=== PATIENT | male | born 1940 | race Caucasian/White ===

== ENCOUNTER → 2018-01-16 13:26 | Outpatient (CLI) | payer MEDICARE, SELFPAY ==
--- NOTE | 2018-01-16 | DI.MRI.S_ITS ---
PROCEDURE: MR KNEE RT WO CON INDICATIONS: ARTHRITIS OF RIGHT KNEE TECHNIQUE: Noncontrast sagittal PD fast spin echo and T2 fast spin echo with fat saturation, sagittal 3-D FLASH with fat saturation; coronal T1 spin echo and PD fast spin echo with fat saturation, and axial PD fast spin echo with fat saturation through the knee. COMPARISON: [facility], CR, KNEE SERIES RT, 04/26/2015, 16:02. FINDINGS: Image quality: Diagnostic. Bones and joint: There is no acute fracture or dislocation. No suspicious osseous lesions are evident. There is a trace knee joint effusion with an associated prominent Rodriguez cyst. Intra-articular joint bodies within the Rodriguez's cyst are present. Severe tricompartmental degenerative changes of the knee are most pronounced within the medial compartment with prominent joint space narrowing, extensive chondromalacia, bony remodeling, and developing marginal osteophytes. The cartilage within the patellofemoral compartment demonstrates extensive chondromalacia and reactive marrow changes. There is thinning and heterogeneity of the head articular cartilage within the lateral tibiofemoral compartment. Cruciate ligaments: The anterior and posterior cruciate ligaments are intact. Menisci: There is degenerative signal of the medial and lateral menisci. There is moderate grade partial-thickness tearing involving the posterior root of the medial meniscus. Moderate fraying along the free edge of the body and posterior horn of the medial meniscus is identified with a complex tear through the central margin of the body of the medial meniscus. Medial structures: The medial collateral ligament is intact. The semimembranosus tendon insertion is intact. The imaged portions of the pes anserinus tendons are unremarkable. No significant fluid is contained within the pes anserinus bursa. Lateral structures: The popliteal tendon is thickened and mildly edematous at its origin. The lateral collateral ligament proper (fibular collateral ligament) and the proximal tibiofibular ligaments are intact. The distal aspect of the biceps femoris tendon and the iliotibial band are intact. Anterior structures: The quadriceps and patellar tendons are intact. There is no significant edema in the infrapatellar fat pad. Moderate edema is identified within the prepatellar soft tissues IMPRESSION: 1. Severe degenerative changes of the right knee are most pronounced within the medial compartment. 2. Complex tearing of the meniscus is more pronounced through the body of the meniscus. 3. Mild patellar tendinopathy. 4. 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 5. Mild proximal popliteal tendinopathy. Dictated by: Parish Becker M.D. on 01/16/2018 at 14:15 Approved by: Parish Becker M.D. on 01/16/2018 at 14:18
== END ==
PROVIDERS: PCP Internal Medicine Geriatric Medicine; Visit Provider Orthopaedic Surgery
DX: M17.11 Unilateral primary osteoarthritis, right knee (principal)
CPT/HCPCS: 73721

== ENCOUNTER 2018-03-11 07:56 | Day surgery (SDC) | payer MEDICARE, SELFPAY ==
[2018-02-26 13:56] VITALS: BMI 34.1
[2018-03-11] VITALS (11 sets, daily range): BP systolic 118–160; BP diastolic 59–83; PULSE 65–92; RESP 12–20; TEMP 36.2–36.6; O2SAT 92–100; BMI 34.1
--- NOTE | 2018-03-11 06:00 | DI.RAD.S_ITS ---
PROCEDURE: XR KNEE RT 1TO2V INDICATIONS: total right knee TECHNIQUE: 2 view(s) of the knee acquired. COMPARISON: None. FINDINGS: Bones: Patient is status post knee joint arthroplasty. Hardware components are in expected positions. Visualized bony structures are intact. Soft tissues: Overlying postoperative changes are noted. IMPRESSION: Status post right total knee arthroplasty with anatomic right knee alignment. Dictated by: Martinez French M.D. on 03/11/2018 at 12:48 Approved by: Martinez French M.D. on 03/11/2018 at 12:48
[2018-03-11] MEDS: ACETAMINOPHEN 325 MG TABLET 975 MG PO ×3 (08:58→21:12)
[2018-03-11] MEDS: PREGABALIN 75 MG CAPSULE PO (08:58)
[2018-03-11] MEDS: CELECOXIB 200 MG CAPSULE PO (08:58)
--- NOTE | 2018-03-11 09:30 | PM.PREOP ---
Pre-operative Note Interval Note Pre-op Check: Yes History & Physical Reviewed by Physician and Yes Exam Performed Changes: Yes H&P completed within 30 days and has changed as indicated here:: The patient has a 1 cm diameter scabbed over area on the left waite where he fell. The wound is seal with no drainage. No signs of infection. I discussed with the patient there might be slight increased infection risk given his diabetes. I do think it is reasonable to proceed with surgery. The patient would like to proceed knowing the slightly increase risk.
--- NOTE | 2018-03-11 09:33 | PM.OP.1 ---
Operative Date/Time/Diagnoses Date of procedure: 03/11/18 Time of procedure: 11:27 Post-op diagnosis: same Procedure & Clinicians Procedure: Right knee osteoarthritis Same procedure as scheduled: Yes Indications: The patient presents today for total knee arthroplasty after failure of conservative treatment. The nature of the procedure including the risks and benefits, alternatives, postoperative course and expected outcome were discussed and all questions answered. Consent was obtained. Operative site confirmed and marked. Surgeon: Darinel Pereyra Equipment Service Engineer: Roc Walter Anesthesia Type: General, Spinal and Local Operative Notes Findings: Severe osteoarthritis. Closure Type: primary Specimen(s): none sent Implants & Drains: [employer] BCS: 7 femoral component, 6 tibial component, 10 mm BCS polyethylene tray and 35 x 9 mm round patella Applied: implant(s) Estimated Blood Loss (mL): 50 Blood products transfused: none Tourniquet time (min): 24 Procedure in detail: The patient was taken to the operative suite and placed under general and spinal anesthesia. The patient was given prophylactic antibiotics prior to surgery. The patient was also given tranexamic acid, 1 g, just prior to surgery for postoperative hemostasis. The lateral knee was prepped and the joint injected with 20 mL of 1% Lidocaine with epinephrine. The knee was then prepped and draped in usual sterile fashion. The leg was exsanguinated with an Esmarch dressing and the tourniquet raised to 300 torr. A 15 cm anterior incision was made. Next a medial trivector arthrotomy was made. The extensor mechanism was marked to ensure accurate repair. Initial exposing dissection was carried out medially and laterally. The knee was then extended and the patellar thickness was measured and a cut made removing approximately 9 mm of bone with a goal of restoring normal patellar thickness. The patella was then sized and drilled. Some excess lateral bone was excised and the patellofemoral ligament released. The tourniquet was then released. The knee was then flexed and the [employer] femoral guide was placed. The anterior pins were placed and the distal rotation holes drilled. The distal cutting guide was placed and the templated distal femoral cut was made. The templating cutting block was then placed and the anterior, posterior and chamfer cuts made. The [employer] tibial guide was placed and the alignment checked along the axis of the proximal tibial with a ezequiel. The proximal tibial cut was then made with an oscillating saw. All meniscus and bony debris was then removed. Flexion extension gaps were checked. No specific balancing was required other than routine exposure and removal of osteophytes. The soft tissues were then injected with a combination of 20 mL of half percent Marcaine with epinephrine and 20 mL of Exparel. The trial components were then placed. The knee went into full extension and flexion beyond 120?. There was excellent medial- lateral balance throughout motion. Patellar tracking was excellent. The trial components were removed and size is confirmed for the final implants. The knee was then exsanguinated with an Esmarch dressing and the tourniquet reapplied for cementing. The knee was cleansed with Pulsavac irrigation and dried. The final components were cemented in with high viscosity vacuum mixed bone cement with antibiotics. The knee was held in extension and the patellar clamp until the cement had adequately cured. The knee was then irrigated with dilute Betadine solution. The extensor mechanism was closed with 5 interrupted #1 Vicryl sutures in 90 degrees of flexion. The joint was then injected with a combination of 1 g of tranexamic acid and 20 mL of quarter percent Marcaine with epinephrine. The subcutaneous tissue was closed with 2-0 Vicryl. The skin was closed with kevon and surgical adhesive. An Aquacel dressing and Meet wrap were then applied. Complications: none Condition: stable Disposition: PACU [facility]
[2018-03-11] MEDS: LACTATED RINGERS 1,000 ML 42 ML IV (10:03)
[2018-03-11] MEDS: CEFAZOLIN 2 GM/100 ML FROZ.PIGGY IV ×2 (10:09→17:11)
[2018-03-11] MEDS: LIDOCAINE 1% W/EPI INJ 20 ML INJ (10:20)
[2018-03-11] MEDS: TRANEXAMIC ACID 1,000 MG VIAL 2000 MG INJ (10:25)
--- NOTE | 2018-03-11 10:36 | SUR.OPER ---
Supine on padded OR bed. Pillow under head, arms secured on padded armboards <90 degree abduction. Safety belt across torso. Non-operative leg secured with tape over blanket over lower leg. Operative leg secured in De[employer]o/Jasper positioner. Foam padded brace at thigh of operative leg.
[2018-03-11] MEDS: BUPIVACAINE 0.5% W/ EPI (PF) 20 ML, BUPIVACAINE LIPOSOME 266 MG, SODIUM CHLORIDE 0.9% 8... INJ (10:59)
[2018-03-11] MEDS: BUPIVACAINE 0.5% W/ EPI (PF) 10 ML, TRANEXAMIC ACID 1,000 MG, SODIUM CHLORIDE 0.9% 20 ML INJ (10:59)
[2018-03-11] MEDS: POVIDONE-IODINE 15 ML, SODIUM CHLORIDE 0.9% 250 ML TOP (11:10)
[2018-03-11] MEDS: fentaNYL 100 MCG/2 ML INJ 50 MCG IV ×2 (11:51→11:59)
[2018-03-11] MEDS: HYDROMORPHONE 0.5 MG INJ IV (12:43)
[2018-03-11] MEDS: LACTATED RINGERS 1,000 ML 125 ML IV ×2 (12:44→21:14)
[2018-03-11] MEDS: OXYCODONE IR 5 MG TABLET PO (13:59)
--- NOTE | 2018-03-11 15:33 | PT.IIE ---
Addendum entered and electronically signed by Nikki Elkins PT 03/11/18 17:28: This certify that I have reviewed this documentation and POC Original Note: Current Diagnoses Unilateral primary osteoarthritis, right knee (03/11/18) Surgery Performed Operation Date: 03/11/18 10:15 Actual Procedures p Total Knee Arthroplasty(Right) - Darinel Pereyra MD Surgical History (Last Updated 02/26/18 @ 14:27 by Estefania Wellington RN) History of arthroplasty of left knee (Acute ~2006) History of bunionectomy (Acute ~2011) Hx of appendectomy (Acute ~1955) Status post cataract extraction of both eyes with insertion of intraocular lens (Acute) Status post radiofrequency ablation (RFA) operation for arrhythmia (Acute) Medical History (Last Updated 02/26/18 @ 14:27 by Estefania Wellington RN) Diabetes (Acute) Diverticulitis (Acute) Easy bruisability (Acute) Edema (Acute) GERD (gastroesophageal reflux disease) (Acute) Hyperlipidemia (Acute) Kidney stones (Acute ~1962) Neuropathy (Acute) Pneumonia (Acute ~05/2017) Thin skin (Acute) Physical Therapy Inpatient Evaluation/Re-Eval M1 PT/OT-IP Prior Functional Status Start: 03/11/18 16:14 Freq: NEEDED Status: Active Protocol: Document 03/11/18 15:33 (Rec: 03/11/18 16:32 [email or web address]) Medical Review Prior Functional Status Medical History Reviewed Yes Communication No deficits noted Mobility and Gait Pt typically ambulates community distances using no AD. He is independent with all self care. Pt drives. Social History Household Members spouse Living Arrangements House Number of Floors (Floors) One Floor Number of Stairs To Enter/Railing? No steps to enter Home Environment High Toilet Walk in Shower Built-In Shower Seat Home Equipment Front Wheel Walker Bedside Commode Grab Bars Near Toilet Grab Bars In Shower Employment Status Retired Additional Social History Comment Pt volunteers for meals on wheels. Pt sleeps in recliner. Lives with who is avaliable for 24/7 assist. M2 PT-IP Current Condition Start: 03/11/18 16:14 Freq: NEEDED Status: Active Protocol: Document 03/11/18 15:33 (Rec: 03/11/18 16:32 [email or web address]) Physical Therapy Current Condition Current Condition Evaluation Date 03/11/18 Treatment Diagnosis R TKA; difficulty walking Onset Date 03/11/18 Weight Bearing Status Weight Bearing Status Weight Bear as Tolerated M3 PT-IP Subjective Start: 03/11/18 16:14 Freq: NEEDED Status: Active Protocol: Document 03/11/18 15:33 (Rec: 03/11/18 16:32 [email or web address]) Subjective Physical Therapy Visit Type Type Initial Evaluation Visit Start Time 15:33 Visit Stop Time 16:10 Total Visit Minutes 37 Number of TURF GROWER Visits 0 Physical Therapy Visit Comments Patient Comments Pt agreeable to mobilize with PT. Patient Goals Plans to d/c home with as 21/10 assist. Therapy Pain Assessment Pain When Pain Assessed During Mobility Pain Present Pain Present Pain Reported Location Right Knee Scale Used 1-2/10 at rest. Up to 6/10 with mobility. 3/10 post session. Pain Management Techniques Apply Cold Modification of Treatment Re-positioning Timing of Activity with Medications M4 PT-IP Mobility and Gait Start: 03/11/18 16:14 Freq: NEEDED Status: Active Protocol: Document 03/11/18 15:33 (Rec: 03/11/18 16:32 [email or web address]) PT-Bed Mobility Assessment Supine to Sit Supine to Sit Contact Guard Assistance 1 Person Assistance Head of Bed Elevated Sit to Supine Sit to Supine Standby Assistance Scooting Scooting to Edge of Bed Standby Assistance PT-Transfer Assessment Sit to and From Stand Sit to and from Stand Contact Guard Assistance Use of Upper Extremities Equipment Transfer Assistive Device Gait Belt Front Wheeled Walker Orthotic/Prosthetic Devices or Brace: No Transfers Transfer Destination Bed Chair Transfer Technique Ambulates between surfaces. Comments Mobility Comments Supine > sit performed with HOB elevated and CGA. Pt slow , but coordinated and able to complete. Sit <> stand CGA with fww min cues. Pt ambulates to/from recliner ( see below). Sit <> stand from recliner is CGA with fww no cues. Returning to bed, pt is SBA for sit > supine with bed flat, no cues. Gait Assessment Gait Gait Assistance Required: Standby Assistance Distance (Feet) 15 Able to Maintain Weight Bearing Status Yes During Gait Assistive Devices Assistive Device Gait Belt Front Wheeled Walker Orthotic/Prosthetic Devices or Brace: No Gait Deviations General Gait Pattern Antalgic Decreased Stride Length Step-to Gait Factors Limiting Gait Function Factors Limiting Gait Function Decreased Activity Tolerance Decreased Strength Limited Range of Motion Pain Poor Balance Comments Gait Comments Pt ambulates 15 + 15 ft to/ from recliner, using fww SBA. Antalgic gait over R LE noted , with slow, guarded step-to pattern. VSS WNL, and pt denies nause, dizziness, or MOSES throughout session. PT-Balance Assessment Sitting Balance and Reactions Static Sitting Balance Ability Good Dynamic Sitting Balance Ability Good Standing Balance and Reactions Static Standing Balance Ability Good Dynamic Standing Balance Ability Fair Device Used fww M5 PT-IP Objective Assessments Start: 03/11/18 16:14 Freq: NEEDED Status: Active Protocol: Document 03/11/18 15:33 (Rec: 03/11/18 16:32 [email or web address]) Orientation Orientation/Cognition Level of Alertness Alert Orientation Name Birthday Language Function Ability No Deficits Noted Gross Range of Motion Lower Extremity ROM Assessment Right Impaired Impairments R knee flexion 95 degrees. 0 degrees extension. Strength Lower Extremity Strength Assessment Right Impaired Hip 4+ Knee 3+ Ankle 5 Comments Strength Comments LLE 5/5 grossly. Sensation Assessment Sensation Light Touch Intact Comments Sensation Comments Pt denies numbness, tingling. M6 PT-IP Treatment Start: 03/11/18 16:14 Freq: NEEDED Status: Active Protocol: Document 03/11/18 15:33 (Rec: 03/11/18 16:32 [email or web address]) Physical Therapy Treatment Exercises Exercises Ankle Pumps Quad Sets Education Education Provided Precautions Weight Bearing Status Post-Op Packet Safety M7 PT-IP Assessment and Plan Start: 03/11/18 16:14 Freq: NEEDED Status: Active Protocol: Document 03/11/18 15:33 (Rec: 03/11/18 16:32 [email or web address]) PT Summary Assessment and Plan Potential Rehabilitation Potential Good Status of Condition at Evaluation Stable Summary Impairments Pain ROM Strength Balance Bed Mobility Transfers Gait Activity Tolerance Assessment Summary Pt s/p R TKA with difficulty walking. Pt ambulated short distance SBA with fww, and CGA with sit <> stand transfers using fww. Pt ambulation distance needs to progress prior to d/c, and caregiver training will be needed prior to d/c. Once completed and pt is medically ready, recommend d/c to home with assist and OP PT. Goals Bed Mobility Goal Independent Transfer Goal Independent Front Wheeled Walker Gait Goal Independent Front Wheel Walker Gait Distance 150 Other Goals STG: Pt will ambulate 100 ft with fww SBA. LTG: Pt will ambulate 150 ft with fww independently Days to Meet Goals 2 Frequency of Treatment Frequency Of Treatment Twice a Day Treatment Plan Physical Therapy Treatment Plan Bed Mobility Training Transfer Training Gait Training Therapeutic Exercise Balance Retraining Post Op Education Discharge Planning Hot or Cold Pack Neuromuscular Re-ed Coordination Retraining Manual Therapy Other Recommendations and Next Treatment Progress ambulation. Pt Focus sleeps in recliner so bed mobility is not a focus. Recommendations To Nursing Amount of Assist Needed 1 Person Assist Discharge Recommendations PT Discharge Recommendations Home with Assistance Outpatient PT
[2018-03-11] MEDS: LOVASTATIN 20 MG TABLET PO (17:13)
[2018-03-11] MEDS: ASPIRIN EC 81 MG TABLET PO (21:12)
[2018-03-11] MEDS: GABAPENTIN 300 MG CAPSULE 900 MG PO (21:12)
[2018-03-12 00:36] VITALS: BP 113/51; PULSE 69; RESP 14; TEMP 36.4; O2SAT 98
--- NOTE | 2018-03-12 00:41 | PC.NURSE ---
Addendum entered by Esthela Hinkle R.N. 03/12/18 05:49: Was able to sleep for approximately 3 hours. States no pain this morning unless moving knee but discussed that he needs to move knee. With movement states pain is 5/10 and requests to take only the Motrin; medicated as requested. Original Note: Patient is alert and oriented. Breath sounds CTA with RA sat of 98%. HRR. Denies nausea. BT present and abdomen is soft. Voiding per urinal and denies dysuria, frequency, urgency or incontinence. Able to move self in bed. Aquacel + franca to right knee is CDI. Denies pain except with movement but declines offer of pain medication; has ice pack to knee. CMS is intact. Noted scabbed abrasion on left anterior lower leg. SCD's applied at shift change. Fall risk score is high and bed alarm is activated; patient instructed to call for assistance and verbalizes understanding.
[2018-03-12] MEDS: CEFAZOLIN 2 GM/100 ML FROZ.PIGGY IV (02:03)
[2018-03-12 05:08] VITALS: BP 110/62; PULSE 64; RESP 16; TEMP 36.8; O2SAT 98
[2018-03-12] MEDS: PANTOPRAZOLE 20 MG TABLET PO (05:39)
[2018-03-12] MEDS: IBUPROFEN 600 MG TABLET PO (05:48)
[2018-03-12 06:36] LABS: Hematocrit 36.6 % (41-53); Hemoglobin 12.4 g/dL (13.5-17.5)
--- NOTE | 2018-03-12 07:36 | PM.DS.1 ---
History of Present Illness Date Patient Seen: 03/12/18 Chief complaint: *OPB* right knee total arthroplasty 38027 Narrative: Patient seen bedside s/p R. TKA POD #1. Patient is doing well, his pain is well controlled, and he has been up and about with physical therapy. He denies CP, SOB, N/V, and calf pain. He would like to go home today. Discharge Providers Primary care physician: Nayana Larry MD Consults: 03/11/18 12:28 Consult to Discharge Planning Routine Comment: Consult to Physical Therapy Evaluate & Treat Comment: Physician Instructions: postop TKA protocol Consult to Respiratory Therapy Evaluate & Treat Comment: Physician Instructions: Evaluate and treat Discharge provider: Francoise Mccormick PA-C Discharge Date: 03/12/18 Summary Discharge Diagnosis: Right knee osteoarthritis Hospital Course: Patient was admitted to the hospital s/p R. TKA on 03/11/[address] Pereyra. Patient tolerated the procedure well with no major complications. Patient was transferred to the acute care floor and placed on the standard joint replacement protocol. Patient was seen by PT and cleared for discharge home. Patient was stable and ready for d/c on 03/12/18. Status at Discharge Cognitive/behavioral status at discharge: Alert & oriented x3 Functional status at discharge: uses cane/walker Overall status at discharge: patient is progressing back to baseline Time Spent with Patient Less than 30 minutes Exam Vital Signs (past 8 hours): - 03/12/18 00:36 03/12/18 05:08 Temperature 97.5 F L 98.2 F Pulse Rate 69 64 Respiratory Rate 14 16 Blood Pressure 113/51 L 110/62 Pulse Oximetry 98 98 Oxygen Delivery Method Room Air Oxygen Flow Rate 0 Narrative Exam Narrative: WDWN NAD A&Ox3. Dressing is CDI, no signs of drainage. Calf is soft and compressible and operative leg is NVI. Minimal erythema/edema. Objective Labs Result Diagrams: 03/12/18 06:15 Labs: Laboratory Results - last 24 hr 03/12/18 06:15 Hgb 12.4 L Hct 36.6 L Discharge Plan Discharge Plan Patient Disposition: Home Discharge Med Rec/Prescriptions Prescriptions: New acetaminophen 325 mg Tablet 975 mg PO TID Qty: 0 RF: 0 aspirin 81 mg Tablet,Delayed Release (Dr/Ec) 81 mg PO BID Qty: 0 RF: 0 oxycodone 5 mg Tablet 5 mg PO Q4H PRN (Reason: Pain, Moderate (4-6)) Qty: 0 RF: 0 Continue metformin 500 mg Tablet 250 mg PO DAILY RF: 0 cetirizine 10 mg Tablet 10 mg PO QPM RF: 0 doxycycline hyclate 50 mg Capsule 50 mg PO Q OTHER DAY RF: 0 gabapentin 300 mg Capsule 900 mg PO BEDTIME RF: 0 omeprazole 20 mg Capsule,Delayed Release(Dr/Ec) 20 mg PO QAM RF: 0 lovastatin 20 mg Tablet 20 mg PO QPM RF: 0 Discontinued aspirin 81 mg Tablet,Delayed Release (Dr/Ec) 81 mg PO DAILY RF: 0 Follow up/Referrals: Darinel Pereyra MD [Physician] - (Follow up in the office in 5-7 days at your previously scheduled post-op appointment.) Nayana Larry MD [Primary Care Provider] - Discharge Orders: Discharge (Order); Ordered 03/12/18 Ordered By: Francoise Mccormick Provider Discharge Instructions Diet: Carb-consistent/Diabetic Activity: Weightbearing as tolerated, use walker until cleared by PT. Cold/Heat Therapy: Apply ice 20 minutes at a time hourly as needed while awake Skin/Wound/Dressing Care Report to your healthcare provider any signs of infection, such as:: chills, fever, night sweats, increased pain, unusual drainage and unusual redness Dressing: Keep dressing clean, dry, and intact. May shower with dressing in place. No soaking in bathtub or pool. Visit Report/Discharge Packet Instructions: DI for Knee Replacement, Oxycodone Stand Alone Forms: Surgery Discharge Discharge Data Primary Care Provider: Nayana Larry Attending Provider: Darinel Pereyra Discharges patient from system. Discharge Date/Time: 03/12/18 13:15 Quality VTE Deep Vein Thrombosis/Pulmonary Embolism Present on Admission: No
[2018-03-12 09:24] VITALS: BP 108/51; PULSE 66; RESP 18; TEMP 36.5
[2018-03-12] MEDS: OXYCODONE IR 5 MG TABLET PO (09:47)
[2018-03-12] MEDS: ASPIRIN EC 81 MG TABLET PO (09:48)
[2018-03-12] MEDS: ACETAMINOPHEN 325 MG TABLET 975 MG PO (09:48)
--- NOTE | 2018-03-12 12:31 | PT.IPTN ---
Current Diagnoses Unilateral primary osteoarthritis, right knee (03/11/18) Surgery Performed Operation Date: 03/11/18 10:15 Actual Procedures p Total Knee Arthroplasty(Right) - Darinel Pereyra MD Physical Therapy Treatment Note M2 PT-IP Current Condition Start: 03/11/18 16:14 Freq: NEEDED Status: Active Protocol: Document 03/11/18 15:33 (Rec: 03/11/18 16:32 [email or web address]) Physical Therapy Current Condition Current Condition Evaluation Date 03/11/18 Treatment Diagnosis R TKA; difficulty walking Onset Date 03/11/18 Weight Bearing Status Weight Bearing Status Weight Bear as Tolerated M3 PT-IP Subjective Start: 03/11/18 16:14 Freq: NEEDED Status: Active Protocol: Document 03/12/18 12:24 SA (Rec: 03/12/18 12:31 SA [email or web address]) Subjective Physical Therapy Visit Type Type Treatment Note Visit Start Time 11:35 Visit Stop Time 12:00 Total Visit Minutes 25 Number of SOFTWARE BUSINESS ANALYST Visits 1 Physical Therapy Visit Comments Patient Comments Pt seated up in chair and agreeable to PT, present. Patient Goals Plan to d/c home this afternoon. Therapy Pain Assessment Pain When Pain Assessed During Mobility Pain Present Pain Present Pain Reported Location Right Knee Scale Used 3/10 Pain Management Techniques Apply Cold Modification of Treatment Re-positioning Timing of Activity with Medications M4 PT-IP Mobility and Gait Start: 03/11/18 16:14 Freq: NEEDED Status: Active Protocol: Document 03/12/18 12:24 SA (Rec: 03/12/18 12:31 SA [email or web address]) PT-Bed Mobility Assessment Rolling Type of Rolling Roll to Right Level of Assist Contact Guard Assistance Supine to Sit Supine to Sit Contact Guard Assistance 1 Person Assistance Head of Bed Elevated Sit to Supine Sit to Supine Standby Assistance Scooting Scooting to Edge of Bed Standby Assistance Scooting Up and Down in Bed Standby Assistance PT-Transfer Assessment Sit to and From Stand Sit to and from Stand Standby Assistance Use of Upper Extremities Equipment Transfer Assistive Device Gait Belt Front Wheeled Walker Orthotic/Prosthetic Devices or Brace: No Transfers Transfer Destination Bed Chair Transfer Technique Ambulates between surfaces. Comments Mobility Comments Pt demonstrates safe use of FWW, SBA required for transfers with Min cues for safety and RLE Wbing. Gait Assessment Gait Gait Assistance Required: Standby Assistance Distance (Feet) 85 Able to Maintain Weight Bearing Status Yes During Gait Assistive Devices Assistive Device Gait Belt Front Wheeled Walker Orthotic/Prosthetic Devices or Brace: No Gait Deviations General Gait Pattern Antalgic Decreased Stride Length Step-to Gait Factors Limiting Gait Function Factors Limiting Gait Function Decreased Activity Tolerance Decreased Strength Limited Range of Motion Pain Poor Balance Comments Gait Comments Gait training for 85 feet with improving ability to take full steps, maintain upright posture and use FWW safely. /caregiver present for PT session. Pt lives in level home with no steps to enter. No c/o nausea of dizziness. Declined CP at end of session. M5 PT-IP Objective Assessments Start: 03/11/18 16:14 Freq: NEEDED Status: Active Protocol: Document 03/11/18 15:33 (Rec: 03/11/18 16:32 [email or web address]) Orientation Orientation/Cognition Level of Alertness Alert Orientation Name Birthday Language Function Ability No Deficits Noted Gross Range of Motion Lower Extremity ROM Assessment Right Impaired Impairments R knee flexion 95 degrees. 0 degrees extension. Strength Lower Extremity Strength Assessment Right Impaired Hip 4+ Knee 3+ Ankle 5 Comments Strength Comments LLE 5/5 grossly. Sensation Assessment Sensation Light Touch Intact Comments Sensation Comments Pt denies numbness, tingling. M6 PT-IP Treatment Start: 03/11/18 16:14 Freq: NEEDED Status: Active Protocol: Document 03/12/18 12:24 SA (Rec: 03/12/18 12:31 [email or web address]) Physical Therapy Treatment Exercises Exercises Ankle Pumps Gluteal Sets Quad Sets Heel Slides Seated Knee Flexion/Extension Education Education Provided Precautions Weight Bearing Status Post-Op Packet Safety Other Treatments Other Treatment Performed Education for edema managment and positioning. M7 PT-IP Assessment and Plan Start: 03/11/18 16:14 Freq: NEEDED Status: Active Protocol: Document 03/12/18 12:24 SA (Rec: 03/12/18 12:31 [email or web address]) PT Summary Assessment and Plan Potential Rehabilitation Potential Good Status of Condition at Evaluation Stable Summary Assessment Summary Pt and receptive to education for edema, exercises and safe mobility. Pt to d/c home today with as primary caregiver. Pt has low pain levels and demonstrates good safety awareness. Frequency of Treatment Frequency Of Treatment Twice a Day Recommendations To Nursing Amount of Assist Needed 1 Person Assist Discharge Recommendations PT Discharge Recommendations Home with Assistance Outpatient PT
--- NOTE | 2018-03-12 12:46 | CM.DANOTE ---
DCP/Assessment: Reviewed chart. Patient is a 78yr old male admitted [facility] for right TKA performed on 03-11-[address] Pereyra. PCP is Dr. Larry. Primary payor is 1)[facility]. Met with patient explained CM/SW role. Patient reports that he plans to d/c home today. Patient has all needed DME in the home and reports that he has outpatient therapy scheduled to begin next week. Patient requested that IMPLEMENTATION SERVICES ANALYST call his spouse and let her know that he will be ready to d/c home around 1:00pm. Patient scheduled to see therapy at [facility] prior to d/c. RN updated. P: Home today. HEENA Alonso Discharge Planning/Care Management CM Discharge Assessment Start: 03/12/18 12:42 Freq: Status: Active Protocol: Document 03/12/18 12:42 KJS (Rec: 03/12/18 12:46 KJS [email or web address]) Discharge Planning Assessment Assigned Charter Driver HEENA Alonso Contact Information Valery Pickard (spouse) Advance Directives? Yes Advance Directives on File No History Provided By Patient Prior Living Arrangements House Household Members spouse Type of transporation used prior to Drives own vehicle admit Independent with ADL's Yes Is patient alert and oriented? Yes Caregiver for Another No Patient/Family Preference OP PT Therapy Barriers to Discharge No Discharge Plan Home Transportation Arrangement Family to provide transport Referrals Initiated None needed Whiteboard Updated in Patient Room with Yes name and ext. # of Charter Driver Review Status In Process Please Provide Date Initial DC 03/12/18 Assessment Was Performed Next Review Type Continued Stay Review Pre-Anesthesia Assessment Start: 02/26/18 13:56 Freq: Status: Complete Protocol: Document 02/26/18 13:56 CAB (Rec: 02/26/18 14:53 CAB [id number]) Pre-Anesthesia Assessment Patient Information Reviewed Via Phone Assessment Assessment Completed With Patient Consent for Planned Operative Procedure( Yes s) Verified H&P Completed Within 30 Days Yes Lab Results BMP/CMP CBC EKG Other Comment H&P and outside labs/ekg to med records to be scanned to chart Primary Care Provider Nayana Larry Medical Clearance Received Yes Specialist Seen Orthopedist Comment PCP note 01/19/18 to med recs to be scanned to chart Primary Language [place] Automatic Glove Turner And Former Required No Height 177.8 cm Weight 107.955 kg Body Mass Index (BMI) 34.1 Hearing Ability Normal Visual Assist Magnifying Glass Dentition Type Teeth, Natural Present Teeth, Missing Barriers to Learning None Hx Anesthesia Reactions No Hx Family Anesthesia Reaction No Hx Malignant Hyperthermia No Hx Blood Transfusions No Anesthesia Review Requested No Graphics Edit Technician No alcohol intake former Alcohol Intake Frequency Other: Avoiding drinking r/t wanting to control diabetes Smoking Status Former smoker Tobacco type pipe Has it been 2 weeks or less since No patient quit smoking how long ago did patient quit smoking Quit 1976 Substance Use Type does not use Pain Present Pain Reported Musculoskeletal Symptoms Difficulty Walking Joint Pain Joint Stiffness History of Falling (Recent or History of No ) Patient is completely paralyzed or No completely immobile Mental Status Oriented to own ability Is patient on oxygen? No Does patient have MARRERO/SOB No Hx Sleep Apnea No Suspected Sleep Apnea No Currently Taking a Beta Lucretia No Can You Climb a Flight of Stairs Without Yes SOB Hx Chest Pain No Hx SOB No Hx Syncope or Dizziness No Anti-Coagulant Therapy No Has a Claims Agent Right Of Way No Cardiac Testing No Hx Pacemaker/ICD No Pacemaker Rep Required? No Cardiac Clearance Received Not Applicable Diet Type At Home Regular dysphagia No Urinary Catheter Present No Hx Urinary Self Catheterization No Diabetes Yes HgbA1C 7.2 Date 02/18/18 Hx Drug Resistant Organism No Presence of External or Internal Medical No Devices Have you traveled outside the [facility] in the last 30 days? Marital Status Lives With spouse Prior Living Arrangements House Number of Floors (Floors) One Floor Number of Stairs To Enter/Railing? none Support System Child/Children Spouse Does the Patient Have Assistance After Yes Surgery Patient Discharge Plan Description Return Home Comment Pt advised 1 night length of stay per surgeon Feels Safe in Current Environment Yes Been Physically Hurt or Threatened By a No Person in Current Environment Do you have thoughts of harming yourself None or others? Are you currently considering suicide? No Do you have a plan to hurt yourself or No Plan others? Do You Have Any Spiritual Beliefs That No May Affect Your HC Choices? Do You Have Any Cultural Practices That No May Affect Your HC Choices? Spiritual Referral None Comment Cheondoism Who Can We Speak to About Patient's Care Family, friends Identifying Code for Release of Patient Declines to issue Information Health Care Proxy/Next of Kin Valery Stafford () Health Care Proxy Emergency Contact Name Valery Stafford () Emergency Contact Advance Directives? Yes Advance Directives on File No Requested Patient Bring Advanced Yes Directives DOS Power of Benefits Representative No PAC Instructions Durable medical equipment Medications to take/avoid Nasal antibiotic No ETOH/petroleum product on skin DOS NPO Post-op transportation Pre-surgical wash Sensory aids Sturdy shoes/comfortable clothes Do not bring valuables and remove jewelry
== END 2018-03-12 13:15 | disposition home or self-care (01) ==
LOC: OR 08:04 → AC 08:05
PROVIDERS: PCP Internal Medicine Geriatric Medicine; Visit Provider Orthopaedic Surgery
PROC: 0SRC0JZ Replacement of Right Knee Joint with Synthetic Substitute, Open Approach (ICD-10-PCS; CPT 27447; principal; 2018-03-11 10:15)
DX: M17.11 Unilateral primary osteoarthritis, right knee (principal); E66.9 Obesity, unspecified; E11.9 Type 2 diabetes mellitus without complications; Z68.36 Body mass index [BMI] 36.0-36.9, adult; Z79.84 Long term (current) use of oral hypoglycemic drugs
CPT/HCPCS: 27447; 36415; 73560; 82962; 85014; 85018; 97116; 97161; 97530; C1776; C9290; J0690; J1100; J1170; J2250; J2405; J2704; J3010